=== PATIENT | male | born 1995 | race Caucasian/White ===

== ENCOUNTER 2021-04-04 08:21 | Emergency (ER) | payer OTHER ==
[2021-04-04] MEDS ORDERED: TETRACAINE 0.5% OPHTH SOLN 2 ML BOTTLE OS ONE (08:25)
[2021-04-04] MEDS ORDERED: FLUORESCEIN NA 1 EA STRIP ONE (08:27)
[2021-04-04] MEDS ORDERED: TETRACAINE 0.5% OPHTH SOLN 2 ML BOTTLE ONE (08:27)
[2021-04-04 08:52] VITALS: BP 127/84; PULSE 78; TEMP 99.2; BMI 26.5
== END 2021-04-04 08:58 | disposition home or self-care (01) ==
LOC: FER 08:21
DX: T15.92XA Foreign body on external eye, part unspecified, left eye, initial encounter (principal); S05.02XA Injury of conjunctiva and corneal abrasion without foreign body, left eye, initial encounter; Y99.8 Other external cause status
CPT/HCPCS: 99283-25